=== PATIENT | female | born 1950 ===

== ENCOUNTER 2016-10-01 15:30 | Outpatient (RCR) | payer OTHER | END 2016-10-29 | disposition home or self-care (01) | LOC: PTY 15:30 | DX: M43.26 Fusion of spine, lumbar region (principal); I50.9 Heart failure, unspecified; M19.90 Unspecified osteoarthritis, unspecified site | CPT/HCPCS: 97110; 97140; 97162; G0283 ==

== ENCOUNTER 2016-11-09 14:55 | Outpatient (RCR) | payer OTHER | END 2016-11-29 | disposition home or self-care (01) | LOC: PTY 14:55 | DX: M43.26 Fusion of spine, lumbar region (principal); M54.5 Low back pain; M46.96 Unspecified inflammatory spondylopathy, lumbar region | CPT/HCPCS: 97110; 97140; G0283 ==